=== PATIENT | male | born 1930 | race Caucasian/White ===

== ENCOUNTER 2020-06-26 10:33 | Emergency (ER) | payer MEDICARE, BC ==
[2020-06-26 10:56] VITALS: BP 132/74; PULSE 112
[2020-06-26] MEDS ORDERED: Sodium Chloride 0.9% 1,000 ML IV ONE (11:35)
[2020-06-26 11:44] LABS: CORONAVIRUS COVID-19 NAA NEGATIVE (NEGATIVE)
[2020-06-26 12:24] LABS: ANION GAP 13.5 mEq/L (7-13)
--- NOTE | 2020-06-26 15:34 | EDM.PDOC ---
Scribed by Abby Fletcher 06/26/20 1252 for Neris Perez NP ED HPI GENERAL MEDICAL PROBLEM - General Chief Complaint: Gastrointestinal Problem Stated Complaint: DIARHEA Time Seen by Provider: 06/26/20 11:00 Source of Information: Reports: Patient, Family, RN, RN Notes Reviewed History Limitations: Reports: No Limitations () - History of Present Illness INITIAL COMMENTS - FREE TEXT/NARRATIVE: Patient is an 89-year-old male who presents to ER with complaint of diarrhea that began on Sunday. The whole family had stomach bug this past week. Patient complains of rectal pain. Daughter states patient also has complaints of testicular pain. Patient states he was awoken in the night Sunday by a "pop" or "explosion" in his right lower quadrant. Patient states he still has his appendix and gallbladder. He has had an umbilical hernia repair a few years ago. States testicular pain since the hernia surgery. Daughter also states diverticulitis 18 years ago. History of atrial fibrillation on Digoxin. Onset: Gradual Duration: Constant Location: Reports: Abdomen Quality: Reports: Ache Severity: Moderate Improves with: Reports: None Worsens with: Reports: None Associated Symptoms: Reports: No Other Symptoms - Related Data Allergies Allergy/AdvReac Type Severity Reaction Status Date / Time No Known Allergies Allergy Verified 06/26/20 10:52 Home Meds: Home Meds Aspirin 325 mg PO DAILY 03/29/15 [History] Bioflav,Lemon/Vit Bcomp,C [Lipoflavovit Caplet] 2 tab PO BID 03/29/15 [History] Digoxin 250 mcg PO DAILY 03/29/15 [History] Gabapentin [Neurontin] 300 mg PO DAILY 03/29/15 [History] LORazepam 1 tab PO BEDTIME PRN 03/29/15 [History] Metoprolol Tartrate 50 mg PO DAILY 03/29/15 [History] Vitamin E (dl, acetate) [Vitamin E] 400 units PO DAILY 03/29/15 [History] hydroCHLOROthiazide [Hydrochlorothiazide] 25 mg PO DAILY 03/29/15 [History] Past Medical History HEENT History: Reports: Cataract, Macular Degeneration Cardiovascular History: Reports: Afib (on Digoxin x30 years), Hypertension, Other (See Below) Other Cardiovascular History: HX OF PAROXYSMAL AFIB Respiratory History: Reports: SOB Gastrointestinal History: Reports: Diverticulosis (18 years ago), Hepatitis, Other (See Below) Other Gastrointestinal History: INGUINAL HERNIA BILAT; VIRAL HEPATITIS C Genitourinary History: Reports: Prostate Disorder, Other (See Below) Other Genitourinary History: NOCTURIA Musculoskeletal History: Reports: Arthritis, Other (See Below) Other Musculoskeletal History: DJD Neurological History: Reports: Vertigo, Other (See Below) Other Neuro History: KYPHOSIS Psychiatric History: Reports: None, Anxiety Endocrine/Metabolic History: Reports: None Hematologic History: Reports: None, Other (See Below) (Interferon 30 years ago Hep C with blood transfusion from injury in [place].) Immunologic History: Reports: None Oncologic (Cancer) History: Reports: None, Malignant Melanoma Dermatologic History: Reports: Melanoma, Seborrheic Dermatitis, Other (See Below) Other Dermatologic History: SEBORRHEIC KERATOSIS WITH SOME BLACK PIGMENTATION RUQ/R CHEST WALL - Infectious Disease History Infectious Disease History: Reports: Hepatitis C, Influenza, Measles, Scarlet Fever - Past Surgical History HEENT Surgical History: Reports: Cataract Surgery Respiratory Surgical History: Reports: None Male Surgical History: Reports: None Musculoskeletal Surgical History: Reports: None Social & Family History - Tobacco Use Tobacco Use Status *Q: Never Tobacco User - Recreational Drug Use Recreational Drug Use: No ED ROS GENERAL - Review of Systems Review Of Systems: Comprehensive ROS is negative, except as noted in HPI. ED EXAM, GI/ABD - Physical Exam Exam: See Below Exam Limited By: Other (weakness) General Appearance: Alert, WD/WN, No Apparent Distress Eyes: Bilateral: Normal Appearance Ears: Normal External Exam, Normal Canal, Hearing Grossly Normal, Normal TMs Nose: Normal Inspection, Normal Mucosa, No Blood Throat/Mouth: Normal Inspection, Normal Lips, Normal Teeth, Normal Gums, Normal Oropharynx, Normal Voice, No Airway Compromise Head: Atraumatic, Normocephalic Neck: Normal Inspection, Supple, Non-Tender, Full Range of Motion Respiratory/Chest: No Respiratory Distress, Lungs Clear, Normal Breath Sounds, No Accessory Muscle Use, Chest Non-Tender Cardiovascular: Normal Peripheral Pulses, Regular Rate, Rhythm, No Edema, No Gallop, No JVD, No Murmur, No Rub GI/Abdominal Exam: Tender (right upper quadrant and right lower quadrant) (Male) Exam: Other (right testicle larger than left, tender and soft. ) Rectal (Males) Exam: Normal Rectal Tone. No: Hemorrhoids Back Exam: Normal Inspection Extremities: Other (weak) Neurological: Alert, Oriented, CN II-XII Intact, Normal Cognition, Normal Gait, Normal Reflexes, No Motor/Sensory Deficits Psychiatric: Normal Affect, Normal Mood Skin Exam: Warm, Dry, Intact, Normal Color, No Rash Lymphatic: No Adenopathy Course - Vital Signs Last Recorded V/S: Last Vital Signs Temp 98.1 F 06/26/20 10:53 Pulse 112 H 06/26/20 10:53 Resp 16 06/26/20 10:53 BP 132/74 06/26/20 10:53 Pulse Ox 100 06/26/20 10:53 - Orders/Labs/Meds Orders: Active Orders 24 hr Category Date Time Status CULTURE BLOOD [BC] Stat Lab 06/26/20 11:35 Received Blood Culture x2 Reflex Set [OM.PC] Stat Oth 06/26/20 11:23 Ordered Labs: Laboratory Tests 06/26/20 06/26/20 06/26/20 Range/Units 10:44 11:35 11:35 WBC 4.6 L (5.0-10.0) 10^3/uL RBC 4.16 L (4.6-6.2) 10^6/uL Hgb 13.6 L (14.0-18.0) g/dL Hct 37.5 L (40.0-54.0) % MCV 90.1 (80-100) fL MCH 32.7 (27.0-34.0) pg MCHC 36.3 H (33.0-35.0) g/dL Plt Count 183 (150-450) 10^3/uL Neut % (Auto) 78.3 H (42.2-75.2) % Lymph % (Auto) 12.0 L (20.5-50.1) % Starr % (Auto) 8.1 H (2-8) % Eos % (Auto) 0.7 L (1.0-3.0) % Baso % (Auto) 0.9 (0.0-1.0) % Sodium 140 (136-145) mmol/L Potassium 3.5 (3.5-5.1) mmol/L Chloride 104 (98-107) mmol/L Carbon Dioxide 26 (21-32) mmol/L Anion Gap 13.5 H (7-13) mEq/L BUN 26 H (7-18) mg/dL Creatinine 1.23 (0.70-1.30) mg/dL Est Cr Clr Drug Dosing 39.47 mL/min Estimated GFR (MDRD) 56 BUN/Creatinine Ratio 21.1 (No establ ref range) Glucose 99 (70-99) mg/dL Lactic Acid (0.4-2.0) mmol/L Calcium 7.8 L (8.5-10.1) mg/dL Magnesium 2.2 (1.8-2.4) mg/dL Total Bilirubin 0.9 (0.2-1.0) mg/dL AST 20 (15-37) U/L ALT 30 (16-63) U/L Alkaline Phosphatase 75 (46-116) U/L C-Reactive Protein 0.7 (0.0-0.9) mg/dL Total Protein 7.3 (6.4-8.2) g/dL Albumin 3.9 (3.4-5.0) g/dL Globulin 3.4 Albumin/Globulin Ratio 1.1 Digoxin (0.9-2.0) ng/mL Influenza Type A RNA Negative (NEGATIVE) Influenza Type B RNA Negative (NEGATIVE) SARS-CoV-2 RNA (YUDI) Negative (NEGATIVE) 06/26/20 06/26/20 Range/Units 11:35 11:35 WBC (5.0-10.0) 10^3/uL RBC (4.6-6.2) 10^6/uL Hgb (14.0-18.0) g/dL Hct (40.0-54.0) % MCV (80-100) fL MCH (27.0-34.0) pg MCHC (33.0-35.0) g/dL Plt Count (150-450) 10^3/uL Neut % (Auto) (42.2-75.2) % Lymph % (Auto) (20.5-50.1) % Starr % (Auto) (2-8) % Eos % (Auto) (1.0-3.0) % Baso % (Auto) (0.0-1.0) % Sodium (136-145) mmol/L Potassium (3.5-5.1) mmol/L Chloride (98-107) mmol/L Carbon Dioxide (21-32) mmol/L Anion Gap (7-13) mEq/L BUN (7-18) mg/dL Creatinine (0.70-1.30) mg/dL Est Cr Clr Drug Dosing mL/min Estimated GFR (MDRD) BUN/Creatinine Ratio (No establ ref range) Glucose (70-99) mg/dL Lactic Acid 0.9 (0.4-2.0) mmol/L Calcium (8.5-10.1) mg/dL Magnesium (1.8-2.4) mg/dL Total Bilirubin (0.2-1.0) mg/dL AST (15-37) U/L ALT (16-63) U/L Alkaline Phosphatase (46-116) U/L C-Reactive Protein (0.0-0.9) mg/dL Total Protein (6.4-8.2) g/dL Albumin (3.4-5.0) g/dL Globulin Albumin/Globulin Ratio Digoxin 0.5 L (0.9-2.0) ng/mL Influenza Type A RNA (NEGATIVE) Influenza Type B RNA (NEGATIVE) SARS-CoV-2 RNA (YUDI) (NEGATIVE) Meds: Medications Discontinued Medications Generic Name Dose Route Start Last Admin Trade Name Freq PRN Reason Stop Dose Admin Sodium Chloride 1,000 mls @ 999 mls/hr 06/26/20 11:35 06/26/20 11:37 Normal Saline IV 06/26/20 12:35 999 mls/hr .BOLUS ONE Administration - Re-Assessments/Exams Free Text/Narrative Re-Assessment/Exam: 06/26/20 15:33 Discussed labs and diagnostics with patient and his daughter. Encouraged patient to go home and rest, drink fluids, and use Imodium for the diarrhea. Patient an d daughter state understanding and are agreeable with the plan. Departure - Departure Time of Disposition: 13:01 Disposition: Home, Self-Care 01 Condition: Fair Clinical Impression: Diarrhea, Gastroenteritis - Discharge Information *PRESCRIPTION DRUG MONITORING PROGRAM REVIEWED*: No *COPY OF PRESCRIPTION DRUG MONITORING REPORT IN PATIENT XAVIER: No Instructions: Food Choices to Help Relieve Diarrhea, Adult, Dehydration, Elderly, [id number], Diarrhea, Adult, [id number] Referrals: PCP,None [Primary Care Provider] - Forms: ED Department Discharge Additional Instructions: Drink plenty of fluids May use loperamide/Imodium as directed for diarrhea Rest May use Preparation H for hemorrhoids Follow-up with your primary care provider Return to the ER with any worsening of problems Sepsis Event Note (ED) - Evaluation Sepsis Screening Result: No Definite Risk - Focused Exam Vital Signs: Vital Signs Temp Pulse Resp BP Pulse Ox 06/26/20 10:53 98.1 F 112 H 16 132/74 100 - My Orders Last 24 Hours: My Active Orders 06/26/20 11:23 Blood Culture x2 Reflex Set [OM.PC] Stat 06/26/20 11:35 CULTURE BLOOD [BC] Stat - Assessment/Plan Last 24 Hours: My Active Orders 06/26/20 11:23 Blood Culture x2 Reflex Set [OM.PC] Stat 06/26/20 11:35 CULTURE BLOOD [BC] Stat I have read and agree with the documentation that has been completed regarding this visit. By signing this record, I attest that the documentation was completed in my physical presence and is an accurate record of the encounter.
== END 2020-06-26 13:06 | disposition home or self-care (01) ==
LOC: DL.ED 10:33
DX: K52.9 Noninfective gastroenteritis and colitis, unspecified (principal); I10 Essential (primary) hypertension; Z20.822 Contact with and (suspected) exposure to COVID-19; Z79.82 Long term (current) use of aspirin; Z79.899 Other long term (current) drug therapy
CPT/HCPCS: 0240U; 36415; 80053; 80162; 83605; 83735; 85025; 86140; 87040; 99283; 99284; J7030

== ENCOUNTER 2020-09-09 10:57 | Emergency (ER) | payer MEDICARE, BC ==
[2020-09-09 11:52] VITALS: BP 127/65; PULSE 54
[2020-09-09] MEDS ORDERED: Lactated Ringers 1,000 ML IV SCH (12:00)
--- NOTE | 2020-09-09 12:07 | EDM.PDOC ---
ED HPI GENERAL MEDICAL PROBLEM - General Chief Complaint: Cardiovascular Problem Stated Complaint: AMBULANCE Time Seen by Provider: 09/09/20 11:50 Source of Information: Reports: Patient History Limitations: Reports: No Limitations - History of Present Illness INITIAL COMMENTS - FREE TEXT/NARRATIVE: Patient comes emergency department today from home with concerns of vertigo. T his patient awoke this morning and felt like he was constantly moving while he was even sitting still especially when he closed his eyes. He developed nausea and vomiting. 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 Typically he would treat himself by staying at home and relaxing over the next couple of days although his is recently and he is unsure if he was going to be able to take care of himself at home. The patient took lorazepam meclizine and Phenergan at home which is his typical course of treatment for his vertigo that he has had multiple times before. His symptoms are much improved and almost completely resolved. He has been otherwise well over the past couple of weeks without any new or different complaints. Upon arrival the patient denies any headache visual acuity changes or diplopia. He has no chest pain shortness of breath or difficulty breathing. No weakness vertigo lightheadedness palpitations. Similar to when he was at home. He has no abdominal pain nausea or vomiting at this time. No hematuria dysuria or urinary frequency. No black or tarry stools. He feels quite a bit better and back to his baseline. - Related Data Allergies Allergy/AdvReac Type Severity Reaction Status Date / Time No Known Allergies Allergy Verified 06/26/20 10:52 Home Meds: Home Meds Aspirin 325 mg PO DAILY 03/29/15 [History] Bioflav,Lemon/Vit Bcomp,C [Lipoflavovit Caplet] 2 tab PO BID 03/29/15 [History] Digoxin 250 mcg PO DAILY 03/29/15 [History] Gabapentin [Neurontin] 150 mg PO BID 03/29/15 [History] LORazepam 1 tab PO BEDTIME PRN 03/29/15 [History] Metoprolol Tartrate 50 mg PO DAILY 03/29/15 [History] Vitamin E (dl, acetate) [Vitamin E] 400 units PO DAILY 03/29/15 [History] hydroCHLOROthiazide [Hydrochlorothiazide] 25 mg PO DAILY 03/29/15 [History] Furosemide 20 mg PO DAILY 09/09/20 [History] hydrOXYzine HCL [hydrOXYzine] 25 mg PO TID PRN 09/09/20 [History] Past Medical History HEENT History: Reports: Cataract, Macular Degeneration Cardiovascular History: Reports: Afib, Hypertension, Other (See Below) Other Cardiovascular History: HX OF PAROXYSMAL AFIB Respiratory History: Reports: SOB Gastrointestinal History: Reports: Hepatitis, Other (See Below) Other Gastrointestinal History: INGUINAL HERNIA BILAT; VIRAL HEPATITIS C Genitourinary History: Reports: Prostate Disorder, Other (See Below) Other Genitourinary History: NOCTURIA Musculoskeletal History: Reports: Arthritis, Other (See Below) Other Musculoskeletal History: DJD Neurological History: Reports: Vertigo, Other (See Below) Other Neuro History: KYPHOSIS Psychiatric History: Reports: None, Anxiety Endocrine/Metabolic History: Reports: None Hematologic History: Reports: None Immunologic History: Reports: None Oncologic (Cancer) History: Reports: None, Malignant Melanoma Dermatologic History: Reports: Melanoma, Seborrheic Dermatitis, Other (See Below) Other Dermatologic History: SEBORRHEIC KERATOSIS WITH SOME BLACK PIGMENTATION RUQ/R CHEST WALL - Infectious Disease History Infectious Disease History: Reports: Hepatitis C, Influenza, Measles, Scarlet Fever - Past Surgical History HEENT Surgical History: Reports: Cataract Surgery Respiratory Surgical History: Reports: None Male Surgical History: Reports: None Musculoskeletal Surgical History: Reports: None ED ROS GENERAL - Review of Systems Review Of Systems: Comprehensive ROS is negative, except as noted in HPI. ED EXAM, GENERAL - Physical Exam Exam: See Below Exam Limited By: No Limitations General Appearance: Alert, WD/WN, No Apparent Distress Eye Exam: Bilateral Eye: EOMI, PERRL, Other (No nystagmus) Ears: Normal Canal, Normal TMs Nose: Normal Inspection, Normal Mucosa Throat/Mouth: Normal Inspection, Normal Lips, Normal Oropharynx, Normal Voice Head: Atraumatic, Normocephalic Neck: Normal Inspection, Supple, Non-Tender Respiratory/Chest: No Respiratory Distress, Lungs Clear, Normal Breath Sounds, No Accessory Muscle Use, Chest Non-Tender Cardiovascular: Normal Peripheral Pulses, Regular Rate, Rhythm, No Murmur, Bradycardia (Which is daughter states is normal for him. ) Peripheral Pulses: 2+: Radial (L), Radial (R), Posterior Tibial (L), Posterior Tibial (R), Dorsalis Pedis (L), Dorsalis Pedis (R) GI/Abdominal: Normal Bowel Sounds, Soft, Non-Tender (Male) Exam: Deferred Rectal (Males) Exam: Deferred Back Exam: Normal Inspection Extremities: Normal Inspection Neurological: Alert, Oriented, No Motor/Sensory Deficits Psychiatric: Normal Affect, Normal Mood Skin Exam: Warm, Dry, Intact, Normal Color Course - Vital Signs Last Recorded V/S: Last Vital Signs Temp 98.5 F 09/09/20 11:34 Pulse 54 L 09/09/20 11:34 Resp 12 09/09/20 11:34 BP 127/65 09/09/20 11:34 Pulse Ox 99 09/09/20 11:34 - Orders/Labs/Meds Labs: Laboratory Tests 09/09/20 09/09/20 09/09/20 Range/Units 12:05 12:05 12:05 WBC 6.4 (5.0-10.0) 10^3/uL RBC 3.72 L (4.6-6.2) 10^6/uL Hgb 11.5 L D (14.0-18.0) g/dL Hct 34.5 L (40.0-54.0) % MCV 92.7 (80-100) fL MCH 30.9 (27.0-34.0) pg MCHC 33.3 (33.0-35.0) g/dL Plt Count 116 L (150-450) 10^3/uL Neut % (Auto) 85.6 H (42.2-75.2) % Lymph % (Auto) 7.0 L (20.5-50.1) % Clinch % (Auto) 5.9 (2-8) % Eos % (Auto) 1.3 (1.0-3.0) % Baso % (Auto) 0.2 (0.0-1.0) % Sodium 143 (136-145) mmol/L Potassium 4.3 (3.5-5.1) mmol/L Chloride 105 (98-107) mmol/L Carbon Dioxide 31 (21-32) mmol/L Anion Gap 11.3 (7-13) mEq/L BUN 32 H (7-18) mg/dL Creatinine 1.32 H (0.70-1.30) mg/dL Est Cr Clr Drug Dosing TNP Estimated GFR (MDRD) 51 BUN/Creatinine Ratio 24.2 (No establ ref range) Glucose 120 H (70-99) mg/dL Calcium 8.6 (8.5-10.1) mg/dL Total Bilirubin 0.6 (0.2-1.0) mg/dL AST 15 (15-37) U/L ALT 24 (16-63) U/L Alkaline Phosphatase 66 (46-116) U/L Troponin I High Sens 10 (<=76) pg/mL Total Protein 6.5 (6.4-8.2) g/dL Albumin 3.7 (3.4-5.0) g/dL Globulin 2.8 Albumin/Globulin Ratio 1.3 Urine Color (YELLOW) Urine Appearance (CLEAR) Urine pH (5.0-9.0) Ur Specific [place] (1.005-1.030) Urine Protein (NEGATIVE) Urine Glucose (UA) (NEGATIVE) Urine Ketones (NEGATIVE) Urine Occult Blood (NEGATIVE) Urine Nitrite (NEGATIVE) Urine Bilirubin (NEGATIVE) Urine Urobilinogen (0.2-1.0) mg/dL Ur Leukocyte Esterase (NEGATIVE) Digoxin 1.1 (0.9-2.0) ng/mL 09/09/20 Range/Units 13:46 WBC (5.0-10.0) 10^3/uL RBC (4.6-6.2) 10^6/uL Hgb (14.0-18.0) g/dL Hct (40.0-54.0) % MCV (80-100) fL MCH (27.0-34.0) pg MCHC (33.0-35.0) g/dL Plt Count (150-450) 10^3/uL Neut % (Auto) (42.2-75.2) % Lymph % (Auto) (20.5-50.1) % Clinch % (Auto) (2-8) % Eos % (Auto) (1.0-3.0) % Baso % (Auto) (0.0-1.0) % Sodium (136-145) mmol/L Potassium (3.5-5.1) mmol/L Chloride (98-107) mmol/L Carbon Dioxide (21-32) mmol/L Anion Gap (7-13) mEq/L BUN (7-18) mg/dL Creatinine (0.70-1.30) mg/dL Est Cr Clr Drug Dosing Estimated GFR (MDRD) BUN/Creatinine Ratio (No establ ref range) Glucose (70-99) mg/dL Calcium (8.5-10.1) mg/dL Total Bilirubin (0.2-1.0) mg/dL AST (15-37) U/L ALT (16-63) U/L Alkaline Phosphatase (46-116) U/L Troponin I High Sens (<=76) pg/mL Total Protein (6.4-8.2) g/dL Albumin (3.4-5.0) g/dL Globulin Albumin/Globulin Ratio Urine Color Yellow (YELLOW) Urine Appearance Clear (CLEAR) Urine pH 5.5 (5.0-9.0) Ur Specific [place] 1.025 (1.005-1.030) Urine Protein Negative (NEGATIVE) Urine Glucose (UA) Negative (NEGATIVE) Urine Ketones Negative (NEGATIVE) Urine Occult Blood Negative (NEGATIVE) Urine Nitrite Negative (NEGATIVE) Urine Bilirubin Negative (NEGATIVE) Urine Urobilinogen 0.2 (0.2-1.0) mg/dL Ur Leukocyte Esterase Negative (NEGATIVE) Digoxin (0.9-2.0) ng/mL Meds: Medications Discontinued Medications Generic Name Dose Route Start Last Admin Trade Name Freq PRN Reason Stop Dose Admin Diazepam 2.5 mg 09/09/20 11:48 Diazepam 10 Mg/2 Ml Syringe IVPUSH 09/09/20 11:49 ONETIME ONE Lactated Ringer's 1,000 mls @ 125 mls/hr 09/09/20 12:00 Ringers, Lactated IV ASDIRECTED SUGAR Sodium Chloride 1,000 mls @ 125 mls/hr 09/09/20 12:30 09/09/20 12:10 Normal Saline IV 125 mls/hr ASDIRECTED SUGAR Administration - Re-Assessments/Exams Free Text/Narrative Re-Assessment/Exam: EKG shows a sinus bradycardia. The patient does have a history of atrial fibrillation for which she is on metoprolol 50 g daily as well as digoxin. He has not had any recent changes in occasions. The patient is pretty much asymptomatic when he is sitting on the bed at this time. He feels quite a bit better after his treatment at home. CBC within normal WBC at 6.4. Hemoglobin 11.5 which is down from 13.5 approximately 3 months ago. The patient has not had any black or tarry stools. Platelet count 116. CMP with a creatinine of 1.32 with a BUN of 2. This is up from his baseline of about 1.1-1.2. The rest of his CMP is rather unremarkable. Urinalysis. Troponin activity is negative. Digoxin level is normal at 1.1. Repeat neurological exam shows no change. No rotary nystagmus. It was noted that his heart rate does dip to approximately 45 before. He is not hypotensive. He is asymptomatic in the bed when he is being moved. He does get somewhat lightheaded or similar vertigo type symptoms he was having at home when we get him up from bed. It is not an aspect of his bradycardia which is most likely causing his midline on his digoxin. Not drop his blood pressure and his daughter is a nurse. Feels comfortable taking him home at this time. Take his metoprolol and he said by 50% to 25 mg daily. He is going pressure is in a more regular basis at home. Also when he is having these episodes. If this does not improve I would like him to follow-up with his primary care and consider discontinuation completely of the metoprolol and/or consideration AICD placed. Patient and his daughter are comfortable with this plan issues are answered. Departure - Departure Time of Disposition: 14:04 Disposition: Home, Self-Care 01 Clinical Impression: Vertigo, TRISTA (acute kidney injury), Bradycardia Instructions: Vertigo, [id number], Bradycardia, Adult, Dizziness, [id number] Referrals: PCP,None [Primary Care Provider] - Forms: ED Department Discharge Additional Instructions: Continue previous medications. Decrease your metoprolol to 25mg daily with your heart rate so slow. Continue the usage of the same as needed medications at home for vertigo. Make sure and drink more fluids over the next few days. You appear a little dehydrated today as well. Return to the ED if new or worsening symptoms. Follow up with PCP next week for recheck of your heart rate. Next time you have these types of episodes check your heart rate and document. Sepsis Event Note (ED) - Evaluation Sepsis Screening Result: No Definite Risk
--- NOTE | 2020-09-09 12:12 | PCM.EKG ---
#1 Interpretation EKG Date: 09/09/20 Time: 11:41 Rhythm: Other (Sinus lauren) Rate (Beats/Min): 49 [place]: LAD-Left [place] Deviation P-Wave: Present QRS: Normal ST-T: Normal QT: Normal Comparison: No Change
[2020-09-09] MEDS ORDERED: Sodium Chloride 0.9% 1,000 ML IV SCH (12:30)
[2020-09-09 12:33] LABS: ANION GAP 11.3 mEq/L (7-13); CHLORIDE,CL 105 mmol/L (98-107); SODIUM,NA 143 mmol/L (136-145)
== END 2020-09-09 14:45 | disposition home or self-care (01) ==
LOC: DL.ED 10:57
DX: R00.1 Bradycardia, unspecified (principal); R42 Dizziness and giddiness; N17.9 Acute kidney failure, unspecified; I48.91 Unspecified atrial fibrillation; I10 Essential (primary) hypertension; M19.90 Unspecified osteoarthritis, unspecified site; Z79.82 Long term (current) use of aspirin; Z79.899 Other long term (current) drug therapy
CPT/HCPCS: 36415; 80053; 80162; 81003; 84484; 85025; 93005; 93010; 99284; J7030